=== PATIENT | female | born 1990 | race Caucasian/White ===

== ENCOUNTER → 2017-01-31 | Outpatient (CLI) | payer OTHER ==
[~2017-01-31] MED LIST: CYAN100020 PO; DICY10CA12 PO; ERGO500037 PO; FLUC200T4 PO; FLUD0.1T10 PO; MIDO10TA PO; ONDA4TAB46 PO; POTA20TA13 PO; RANI1TAB75 PO
[2017-01-31 11:20] LABS: URINE APPEARANCE CLOUDY (CLEAR); URINE BILIRUBIN NEG (NEG); URINE COLOR YELLOW; URINE EPITHELIAL CELL AUTO >30 /lpf (0-5); URINE NITRITE NEG (NEG); URINE SPECIFIC GRAVITY 1.022 (1.000-1.030); UROBILINOGEN NEG (NEG)
[2017-01-31 11:21] LABS: MANUAL MICROSCOPIC REQUIRED? NO; REVIEW REQ? NO
== END | disposition home or self-care (01) ==
LOC: C.LABSPEC 10:52
PROVIDERS: ATTEND Obstetrics & Gynecology
DX: Z34.01 Encounter for supervision of normal first pregnancy, first trimester (principal); Z36.89 Encounter for other specified antenatal screening

== ENCOUNTER → 2017-02-09 | Outpatient (CLI) | payer OTHER ==
[~2017-02-09] MED LIST changes: +PRENTAB26 PO
== END | disposition home or self-care (01) ==
LOC: C.PAPS 14:18
PROVIDERS: ATTEND Obstetrics & Gynecology
DX: Z34.01 Encounter for supervision of normal first pregnancy, first trimester (principal)

== ENCOUNTER → 2017-02-09 | Outpatient (CLI) | payer OTHER | END | disposition home or self-care (01) | LOC: C.LABSPEC 13:27 | PROVIDERS: ATTEND Obstetrics & Gynecology | DX: Z34.01 Encounter for supervision of normal first pregnancy, first trimester (principal) ==

== ENCOUNTER → 2017-02-09 | Outpatient (CLI) | payer OTHER ==
[2017-02-09 10:44] LABS: BASO % 0.2 %; BASO ABS # 0.01 K/uL (0-0.2); EOS % 2.2 %; EOS ABS # 0.14 K/uL (0-0.5); HEMATOCRIT 40.9 % (37-47); HEMOGLOBIN 14.1 g/dL (12.0-16.0); IG# 0.02 K/uL (0.00-0.02); LYMPH ABS # 1.42 K/uL (1.2-3.4); MEAN CELL VOLUME 99.8 fL (80-100); MEAN CORPUSCULAR HEMOGLOBIN 34.4 pg (25-34); MEAN CORPUSCULAR HGB CONC 34.5 g/dl (32-36); MEAN PLATELET VOLUME 11.1 fL (7.4-10.4); MONO % 6.5 %; MONO ABS # 0.42 K/uL (0.11-0.59); NEUT % 68.8 %; NEUT ABS # 4.45 K/uL (1.4-6.5); PLATELET COUNT 194 K/uL (130-400); RED CELL DISTRIBUTION WIDTH CV 13.2 % (11.5-14.5); RED CELL DISTRIBUTION WIDTH SD 47.9 fL (36.4-46.3); WHITE BLOOD COUNT 6.46 K/uL (4.8-10.8)
== END | disposition home or self-care (01) ==
LOC: C.LAB1850 09:59
PROVIDERS: ATTEND Obstetrics & Gynecology
DX: Z34.01 Encounter for supervision of normal first pregnancy, first trimester (principal)

== ENCOUNTER → 2017-03-07 | Outpatient (CLI) | payer OTHER ==
[~2017-03-07] MED LIST changes: -PRENTAB26 PO
== END | disposition home or self-care (01) ==
LOC: C.LAB1850 09:30
PROVIDERS: ATTEND Obstetrics & Gynecology
DX: Z34.02 Encounter for supervision of normal first pregnancy, second trimester (principal)

== ENCOUNTER → 2017-05-23 | Outpatient (CLI) | payer BC ==
[2017-05-23 12:23] LABS: HEMATOCRIT 35.5 % (37-47); HEMOGLOBIN 12.2 g/dL (12.0-16.0)
== END | disposition home or self-care (01) ==
LOC: C.LAB1850 10:28
PROVIDERS: ATTEND Obstetrics & Gynecology
DX: Z34.03 Encounter for supervision of normal first pregnancy, third trimester (principal)

== ENCOUNTER 2017-06-14 16:25 | Emergency (ER) | payer BC ==
[~2017-06-14] VITALS: Ht 165.1 cm; Wt 74.6 kg
[2017-06-14 16:34] VITALS: TEMP 36.6; Ht 165.1 cm; Wt 74.6 kg
[2017-06-14] MEDS ORDERED: SODIUM CHLORIDE 0.9% 1000ML 1,000 ML IV STA (16:50)
[2017-06-14] MEDS ORDERED: PRENTAB26 PO (17:42)
[2017-06-14 17:52] LABS: BASO % 0.1 %; BASO ABS # 0.01 K/uL (0-0.2); EOS % 0.9 %; EOS ABS # 0.09 K/uL (0-0.5); HEMATOCRIT 36.9 % (37-47); HEMOGLOBIN 12.5 g/dL (12.0-16.0); IG# 0.04 K/uL (0.00-0.02); LYMPH ABS # 1.55 K/uL (1.2-3.4); MEAN CORPUSCULAR HEMOGLOBIN 33.9 pg (25-34); MEAN CORPUSCULAR HGB CONC 33.9 g/dl (32-36); MEAN PLATELET VOLUME 11.1 fL (7.4-10.4); MONO % 6.9 %; MONO ABS # 0.71 K/uL (0.11-0.59); NEUT % 76.7 %; NEUT ABS # 7.94 K/uL (1.4-6.5); PLATELET COUNT 254 K/uL (130-400); RED CELL DISTRIBUTION WIDTH CV 13.3 % (11.5-14.5); RED CELL DISTRIBUTION WIDTH SD 48.1 fL (36.4-46.3); WHITE BLOOD COUNT 10.34 K/uL (4.8-10.8)
[2017-06-14 18:00] LABS: ALBUMIN 2.9 gm/dl (3.4-5.0); ALT/SGPT 24 U/L (12-78); AST/SGOT 21 U/L (15-37); BLOOD UREA NITROGEN 3 mg/dl (7-18); CALCIUM 8.3 mg/dl (8.5-10.1); CARBON DIOXIDE 22 mmol/L (21-32); CREATININE 0.51 mg/dl (0.60-1.20); GLUCOSE 80 mg/dl (70-99); LIPASE 185 U/L (73-393); POTASSIUM 3.4 mmol/L (3.5-5.1); SODIUM 136 mmol/L (136-145)
[2017-06-14 18:03] LABS: ALKALINE PHOSPHATASE 128 U/L (45-117); TOTAL PROTEIN 6.4 gm/dl (6.4-8.2)
--- NOTE | 2017-06-14 18:29 | EMERGENCY ROOM VISIT NOTE ---
History Report prepared by Hunter: Marlene Adam Under the Supervision of: Dr. Kt Baer M.D. 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 She was standing and talking when she started feeling lightheaded and SOB. She went and sat down. She started seeing black spots. Her blood pressure was 102/59. She tried drinking some water. She then started having tingling in her face which is usually what happens before she passes out. She decided to come to the ED. She has a history of POTS for the past 4 years. Her symptoms today were consistent with her POTS. She usually starts to have symptoms when the weather becomes warmer. She is also unable to take her POTS medications because of her . She is currently 31 weeks with her first . There have been no complications with her . She reports chest tightness. She denies any contractions or vaginal bleeding. She has had some swelling in her feet with standing which resolves after rest. She has been keeping up with her fluids. 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 Pt denies vaginal bleeding. Review of Systems See HPI for pertinent positives & negatives. A total of 10 systems reviewed and were otherwise negative. Past Medical & Surgical Medical Problems: (1) POTS (postural orthostatic tachycardia syndrome) Old medical records were reviewed. Nurse's notes were reviewed and I agree with. Family History Diabetes mellitus FH: heart disease FHx: cancer FHx: gallbladder disease Hypertension Social History Smoking Status: Never Smoker Marital Status: in relationship Housing Status: lives with significant other Occupation Status: employed Current/Historical Medications Scheduled Multivit/Min/Iron/Fol Ac/Pren ( Vitamin), 1 TAB PO DAILY Allergies Coded Allergies: No Known Allergies (Unverified , 06/14/17) Physical Exam Vital Signs Date Time Temp Pulse Resp B/P (MAP) Pulse Ox O2 Delivery O2 Flow Rate FiO2 06/14/17 19:13 85 18 114/71 100 06/14/17 18:25 87 18 116/68 100 Room Air 06/14/17 17:26 93 18 108/67 97 Room Air 06/14/17 16:34 36.6 78 18 108/70 100 Room Air Physical Exam General: Non-ill appearing gravid young female in no acute distress. HEENT: Normal cephalic atraumatic. Pupils are equal round and reactive to light. Extraocular movements are intact. Oropharynx is pink with moist mucous membranes. No swelling of the mouth lips or tongue. Neck: Supple with a midline trachea. No meningeal signs or stiffness, no JVD or bruits. No Stridor. Chest: Clear to auscultation bilaterally. No wheezes or rhonchi. No increased work of breathing. Heart: regular rate and rhythm. Abdomen: Soft nontender, nondistended without rebound guarding or rigidity. Extremities: No cyanosis clubbing or edema. No calf tenderness or assymetry Spine/Back. Non tender to palpation. No CVA tenderness Skin: Good turgor without rashes. Neurologic exam: Cranial nerves two through 12 are intact. Motor and sensation are intact and symmetrical throughout. Medical Decision & Procedures Laboratory Results 06/14/17 17:20 Red Blood Count 3.69, Mean Corpuscular Volume 100.0, Mean Corpuscular Hemoglobin 33.9, Mean Corpuscular Hemoglobin Concent 33.9, Mean Platelet Volume 11.1, Neutrophils (%) (Auto) 76.7, Lymphocytes (%) (Auto) 15.0, Monocytes (%) ( Auto) 6.9, Eosinophils (%) (Auto) 0.9, Basophils (%) (Auto) 0.1, Neutrophils # ( Auto) 7.94, Lymphocytes # (Auto) 1.55, Monocytes # (Auto) 0.71, Eosinophils # ( Auto) 0.09, Basophils # (Auto) 0.01 06/14/17 17:20 Test 06/14/17 17:20 06/14/17 17:33 White Blood Count 10.34 K/uL (4.8-10.8) Red Blood Count 3.69 M/uL (4.2-5.4) Hemoglobin 12.5 g/dL (12.0-16.0) Hematocrit 36.9 % (37-47) Mean Corpuscular Volume 100.0 fL (80-100) Mean Corpuscular Hemoglobin 33.9 pg (25-34) Mean Corpuscular Hemoglobin Concent 33.9 g/dl (32-36) Platelet Count 254 K/uL (130-400) Mean Platelet Volume 11.1 fL (7.4-10.4) Neutrophils (%) (Auto) 76.7 % Lymphocytes (%) (Auto) 15.0 % Monocytes (%) (Auto) 6.9 % Eosinophils (%) (Auto) 0.9 % Basophils (%) (Auto) 0.1 % Neutrophils # (Auto) 7.94 K/uL (1.4-6.5) Lymphocytes # (Auto) 1.55 K/uL (1.2-3.4) Monocytes # (Auto) 0.71 K/uL (0.11-0.59) Eosinophils # (Auto) 0.09 K/uL (0-0.5) Basophils # (Auto) 0.01 K/uL (0-0.2) RDW Standard Deviation 48.1 fL (36.4-46.3) RDW Coefficient of Variation 13.3 % (11.5-14.5) Immature Granulocyte % (Auto) 0.4 % Immature Granulocyte # (Auto) 0.04 K/uL (0.00-0.02) Anion Gap 6.0 mmol/L (3-11) Est Creatinine Clear Calc Drug Dose 169.0 ml/min Estimated GFR () > 150.0 Estimated GFR (Non- 132.7 BUN/Creatinine Ratio 6.5 (10-20) Calcium Level 8.3 mg/dl (8.5-10.1) Total Bilirubin 0.3 mg/dl (0.2-1) Direct Bilirubin < 0.1 mg/dl (0-0.2) Aspartate Amino Transf (AST/SGOT) 21 U/L (15-37) Alanine Aminotransferase (ALT/SGPT) 24 U/L (12-78) Alkaline Phosphatase 128 U/L (45-117) Total Protein 6.4 gm/dl (6.4-8.2) Albumin 2.9 gm/dl (3.4-5.0) Lipase 185 U/L (73-393) Bedside Troponin I < 0.030 ng/ml (0-0.045) Laboratory studies as stated above per my review. Medications Administered Medications (Trade) Dose Ordered Sig/Naina Route Start Time Stop Time Status Last Admin Dose Admin Sodium Chloride 1,000 ml @ 999 mls/hr Q1H1M STAT IV 06/14/17 16:50 06/14/17 17:50 DC 06/14/17 17:25 999 MLS/HR ECG Per My Interpretation Indication: syncope Rate (beats per minute): 79 Rhythm: normal sinus Findings: no acute ischemic change, no ectopy Comparison ECG Date: no prior available ED Course 164: Past medical records reviewed. The patient was evaluated in room C7, and a complete history and physical examination were performed. 1650: Sodium Chloride 1000 ml @ 999 mls/hr IV. 175: I reevaluated the patient. She is starting to feel better. 184: I reevaluated the patient. I updated her on the results. heart tones are being obtained. 1852: I discussed the patient's case with Dr. Garcia, [facility] [place] Professor Of [place]. She agrees with the patient being discharged home. 1858: Upon reevaluation, the patient is resting comfortably. I discussed the results and treatment plan with her. She verbalized agreement of the treatment plan. The patient was discharged home. Medical Decision Differentials include, but are not limited to; POTS syndrome, dehydration, arrhythmia, electrolyte or metabolic abnormality, complication. This patient comes in as described above. She has a history of pots syndrome and had an episode today that feels very similar to previous pots syndrome. she did not actually pass out but started to feel like she might. She is 31 weeks and the has been going without complications. At present, she has nothing to suggest a complication -she has had no contractions or gush of fluid or vaginal bleeding. She has no chest pain. I do not think is likely a PE. EKG shows no acute ischemic changes or ectopy. She has no significant x-ray or metabolic abnormalities. She was hydrated with IV fluids and is feeling significantly better back at baseline. Her heart tones are in the 150s and normal baseline. She feels good and would like to go home. I did discuss the case with Dr. Garcia who is on-call for [employer]FORMATION [employer]ER group who recommend she follow-up with her next appointment. I encouraged the patient return if she has worsening symptoms, any new problems or concerns. She is happy with the plan and discharged home. Medication Reconcilliation Current Medication List: was personally reviewed by me Blood Pressure Screening Patient's blood pressure: Normal blood pressure Blood pressure disposition: Did not require urgent referral Consults Time Called: 1849 Consulting Physician: Dr. Garcia, [facility] [place] Of [place] Returned Call: 1852 I discussed the patient's case with her. She agrees with the patient being discharged home. Impression Primary Impression: Dizziness Additional Impressions: POTS (postural orthostatic tachycardia syndrome) Dehydration Scribe Attestation The scribe's documentation has been prepared under my direction and personally reviewed by me in its entirety. I confirm that the note above accurately reflects all work, treatment, procedures, and medical decision making performed by me. Departure Information Dispostion Home / Self-Care Referrals No Doctor, Assigned (PCP) Forms HOME CARE DOCUMENTATION FORM, IMPORTANT VISIT INFORMATION Patient Instructions [facility] Consult [employer] Additional Instructions Rest. Drink plenty of fluids. Try to stay out of the sun Return if: Worsening of symptoms, vaginal bleeding or discharge, contractions, any new problems or concerns. Follow-up with your next CHIEF INFORMATION OFFICER appointment Problem Qualifiers
[2017-06-14 19:13] VITALS: BP 114/71; PULSE 85; O2SAT 100
== END 2017-06-14 19:14 | disposition home or self-care (01) ==
LOC: C.EDB 16:27 → C.EDC 19:14
DX: O99.89 Other specified diseases and conditions complicating pregnancy, childbirth and the puerperium (principal); Z3A.31 31 weeks gestation of pregnancy; I49.8 Other specified cardiac arrhythmias; E86.0 Dehydration; Z83.3 Family history of diabetes mellitus; Z80.9 Family history of malignant neoplasm, unspecified; Z82.49 Family history of ischemic heart disease and other diseases of the circulatory system; Z83.79 Family history of other diseases of the digestive system

== ENCOUNTER → 2017-10-06 | Outpatient (CLI) | payer BC, OTHER ==
[~2017-10-06] MED LIST changes: -CYAN100020 PO; -DICY10CA12 PO; -ERGO500037 PO; -FLUC200T4 PO; -FLUD0.1T10 PO; -MIDO10TA PO; -ONDA4TAB46 PO; -POTA20TA13 PO; +PRENTAB26 PO; -RANI1TAB75 PO
== END | disposition home or self-care (01) ==
LOC: C.LABSPEC 17:54
PROVIDERS: ATTEND Obstetrics & Gynecology
DX: N76.2 Acute vulvitis (principal)